=== PATIENT | female | born 1975 | race Caucasian/White ===

== ENCOUNTER 2016-11-16 17:45 | Inpatient (IN) | payer MEDICAID ==
[~2016-11-16] VITALS: Ht 157.5 cm; Wt 56.7 kg
[~2016-11-16 17:45] MED LIST: LEVO100T41 PO
[2016-11-16 19:43] LABS: BASOPHILS % 0.7 % (0.0-2.0); DIFFERENTIAL COMMENT 0; EOSINOPHILS % 3.4 % (0.0-5.0); HEMATOCRIT. 36.2 % (36.0-48.0); LYMPHOCYTES % 25.5 % (20.0-50.0); MEAN CORPUSCULAR HEMOGLOBIN 26.3 pg (28.0-32.0); MEAN CORPUSCULAR HGB CONC 33.3 g/dL (31.0-37.0); MEAN CORPUSCULAR VOLUME 78.9 fL (81.0-99.0); MEAN PLATELET VOLUME 10.2 fl (7.4-10.4); NEUTROPHILS % 62.4 % (40.0-76.0); PLATELET 130 x1000/uL (130-400); RED BLOOD CELL COUNT 4.59 mill/uL (4.2-5.4); RED CELL DISTRIBUTION WIDTH 15.7 % (11.6-14.6); WHITE BLOOD COUNT 5.1 x1000/uL (4.5-11.0)
[2016-11-16 19:50] LABS: PROTHROMBIN TIME 10.2 sec
[2016-11-16 20:02] LABS: ALANINE AMINOTRANSFERASE 17 IU/L (13-61); ALBUMIN 3.5 g/dL (3.4-5.0); ANION GAP 7; CALCIUM 8.8 mg/dL (8.5-10.1); CARBON DIOXIDE 33 mEq/L (21-32); CHLORIDE 104 mEq/L (98-107); INDEX HEMOLYSI 1 (1-3); INDEX ICTERIC 1 (1-4); INDEX LIPEMIC 1 (1-3); UREA NITROGEN BLOOD 17 mg/dL (7-21); eGFR > 60 mL/min (>60)
[2016-11-16 23:15] VITALS: BP 110/74
[2016-11-17] MEDS: SODIUM CHLORIDE 0.9% 1,000 ML IV SCH ×2 (02:49→14:41)
[2016-11-17 04:00] VITALS: BP 108/69
[2016-11-17 06:35] LABS: DIFFERENTIAL COMMENT 0; EOSINOPHILS % 4.1 % (0.0-5.0); HEMOGLOBIN. 11.8 g/dL (12.0-16.0); LYMPHOCYTES % 32.2 % (20.0-50.0); MEAN CORPUSCULAR HEMOGLOBIN 26.3 pg (28.0-32.0); MEAN CORPUSCULAR HGB CONC 33.6 g/dL (31.0-37.0); MEAN CORPUSCULAR VOLUME 78.2 fL (81.0-99.0); MEAN PLATELET VOLUME 10.7 fl (7.4-10.4); NEUTROPHILS % 52.7 % (40.0-76.0); PLATELET 125 x1000/uL (130-400); RED BLOOD CELL COUNT 4.48 mill/uL (4.2-5.4); RED CELL DISTRIBUTION WIDTH 15.2 % (11.6-14.6); WHITE BLOOD COUNT 4.5 x1000/uL (4.5-11.0)
[2016-11-17] MEDS: LEVOTHYROXINE SODIUM 100MCG TABLET PO SCH (06:36)
[2016-11-17] MEDS ORDERED: ACET-2178 PO (06:37)
[2016-11-17] MEDS ORDERED: ACETAMINOPHEN 325MG TABLET PO PRN (06:45)
[2016-11-17 08:00] VITALS: BP 93/65
[2016-11-17 09:30] LABS: ANION GAP 8; CALCIUM 8.4 mg/dL (8.5-10.1); CARBON DIOXIDE 30 mEq/L (21-32); CHLORIDE 106 mEq/L (98-107); INDEX HEMOLYSI 1 (1-3); INDEX ICTERIC 1 (1-4); INDEX LIPEMIC 1 (1-3); UREA NITROGEN BLOOD 15 mg/dL (7-21); eGFR > 60 mL/min (>60)
[2016-11-17 12:00] VITALS: BP 86/60
[2016-11-17 16:00] VITALS: BP 103/79
[2016-11-17] MEDS: ENOXAPARIN 40MG/0.4ML SYR SUBCUT SCH (17:49)
[2016-11-17 20:00] VITALS: BP 100/69
[2016-11-18] VITALS (7 sets, daily range): BP systolic 80–129; BP diastolic 55–88
[2016-11-18] MEDS: SODIUM CHLORIDE 0.9% 1,000 ML IV SCH ×2 (03:00→16:07)
[2016-11-18] MEDS: LEVOTHYROXINE SODIUM 100MCG TABLET PO SCH (06:58)
[2016-11-18] MEDS: ENOXAPARIN 40MG/0.4ML SYR SUBCUT SCH (10:03)
== END 2016-11-18 21:34 | DRG 252 ==
LOC: ER 17:46 → OBSVTOIN 20:01 → 6EST 20:01 → INTOOBSV 20:01
PROVIDERS: ADMIT Internal Medicine; ATTEND Internal Medicine
PROC: 0D20XUZ Change Feeding Device in Upper Intestinal Tract, External Approach (ICD-10-PCS; principal; 2016-11-18)
DX: K94.23 Gastrostomy malfunction (principal); R13.10 Dysphagia, unspecified; E03.9 Hypothyroidism, unspecified; Z88.1 Allergy status to other antibiotic agents; Z79.899 Other long term (current) drug therapy; Z86.61 Personal history of infections of the central nervous system; Y83.3 Surgical operation with formation of external stoma as the cause of abnormal reaction of the patient, or of later complication, without mention of misadventure at the time of the procedure; Z87.820 Personal history of traumatic brain injury
CPT/HCPCS: 36415; 74000; 80048; 80053; 85025; 85610; 99285; J1650; J7030

== ENCOUNTER 2018-10-06 00:34 | Emergency (ER) | payer MEDICAID ==
[~2018-10-06] VITALS: Ht 154.9 cm; Wt 46.0 kg
[~2018-10-06 00:34] MED LIST changes: +ACET-2178 PO; -LEVO100T41 PO; +[UNRECOGNIZED DRUG - CODE] PO
[2018-10-06] MEDS ORDERED: DIATR MEGLU/DIATRIZOATE SOLN 30ML ONE (01:22)
[2018-10-06 03:15] VITALS: BP 108/74
== END 2018-10-06 03:18 ==
LOC: ER 00:34
DX: K94.23 Gastrostomy malfunction (principal); E03.9 Hypothyroidism, unspecified; R47.01 Aphasia; Z86.73 Personal history of transient ischemic attack (TIA), and cerebral infarction without residual deficits; Z88.1 Allergy status to other antibiotic agents; Z98.890 Other specified postprocedural states
CPT/HCPCS: 43762; 74018; 99284; Q9963; Z7610; 43760

== ENCOUNTER 2018-10-10 19:03 | Inpatient (IN) | payer MEDICAID, OTHER ==
[~2018-10-10] VITALS: Ht 157.5 cm; Wt 55.8 kg
[2018-10-10] MEDS ORDERED: SODIUM CHLORIDE 0.9% 1,000 ML IV ONE (20:20)
[2018-10-10] MEDS ORDERED: GUAIFENESIN 200MG/10ML SUGAR FREE UDC PO PRN (20:45)
[2018-10-10] MEDS ORDERED: ONDANSETRON HCL 4MG/2ML INJ IV PRN (20:45)
[2018-10-10] MEDS ORDERED: DOCUSATE SODIUM 100MG CAPSULE PO PRN (20:45)
[2018-10-10] MEDS ORDERED: ACETAMINOPHEN 325MG TABLET PO PRN (20:45)
[2018-10-10] MEDS ORDERED: NA PHOS,M-B/NA PHOS,DI-BA ENEMA 118ML PR PRN (20:45)
[2018-10-10] MEDS ORDERED: DIPHENHYDRAMINE 50MG/ML VIAL IV PRN (20:45)
[2018-10-10] MEDS ORDERED: IPRATROPIUM/ALBUTEROL 0.5-3(2.5)MG/3ML NEB INH PRN (20:45)
[2018-10-10] MEDS ORDERED: ACETAMINOPHEN 650MG/20.3ML UDC GT PRN (20:45)
[2018-10-10] MEDS ORDERED: ACETAMINOPHEN 650MG SUPP PR PRN (20:45)
[2018-10-10] MEDS ORDERED: CLONIDINE 0.1MG TABLET PO PRN (20:45)
[2018-10-10] MEDS ORDERED: MAGNESIUM/ALUMINUM HYDROXIDE/SIMETHICONE 30ML UDC PO PRN (20:45)
[2018-10-10 21:00] LABS: BASOPHILS % 0.9 % (0.0-2.0); EOSINOPHILS % 3.9 % (0.0-5.0); HEMATOCRIT. 40.8 % (36.0-48.0); HEMOGLOBIN. 13.8 g/dL (12.0-16.0); LYMPHOCYTES % 28.1 % (20.0-50.0); MEAN CORPUSCULAR HEMOGLOBIN 28.4 pg (28.0-32.0); MEAN PLATELET VOLUME 9.7 fl (7.4-10.4); MONOCYTES % 8.8 % (2.0-8.0); NEUTROPHILS % 58.3 % (40.0-76.0); PLATELET 170 x1000/uL (130-400); RED BLOOD CELL COUNT 4.86 mill/uL (4.2-5.4); RED CELL DISTRIBUTION WIDTH 15.1 % (11.6-14.6)
[2018-10-10 21:04] LABS: CHLORIDE 110 mEq/L (98-107)
[2018-10-10 21:06] LABS: PROTHROMBIN TIME 9.8 sec (9.1-11.1)
[2018-10-10] MEDS ORDERED: SODIUM CHLORIDE 0.9% 1,000 ML IV SCH (23:45)
[2018-10-11] VITALS: BP 108/73
[2018-10-11] MEDS ORDERED: MOM PO (01:36)
[2018-10-11 04:00] VITALS: BP 103/65
[2018-10-11] MEDS: SODIUM CHLORIDE 0.9% INJ 3ML FLUSH IVF SCH ×3 (06:16→22:00)
[2018-10-11 06:52] LABS: BASOPHILS % 0.9 % (0.0-2.0); EOSINOPHILS % 3.7 % (0.0-5.0); HEMATOCRIT. 37.6 % (36.0-48.0); HEMOGLOBIN. 12.7 g/dL (12.0-16.0); LYMPHOCYTES % 19.4 % (20.0-50.0); MEAN CORPUSCULAR HEMOGLOBIN 28.5 pg (28.0-32.0); MEAN CORPUSCULAR VOLUME 84.5 fL (81.0-99.0); MEAN PLATELET VOLUME 10.2 fl (7.4-10.4); MONOCYTES % 7.2 % (2.0-8.0); NEUTROPHILS % 68.8 % (40.0-76.0); PLATELET 156 x1000/uL (130-400); RED BLOOD CELL COUNT 4.45 mill/uL (4.2-5.4); RED CELL DISTRIBUTION WIDTH 14.9 % (11.6-14.6)
[2018-10-11 07:05] LABS: CHLORIDE 113 mEq/L (98-107)
[2018-10-11 07:19] LABS: LDL CHOLESTEROL 95 mg/dL (5-100)
[2018-10-11 07:20] LABS: HDL CHOLESTEROL 53 mg/dL (40-59)
[2018-10-11 08:00] VITALS: BP 89/56
[2018-10-11] MEDS: ENOXAPARIN 40MG/0.4ML SYR SUBCUT SCH (08:54)
[2018-10-11 12:00] VITALS: BP 100/63
[2018-10-11 16:00] VITALS: BP 90/59
[2018-10-11] MEDS: DEXT 5%/0.9% NACL 1,000 ML IV SCH (17:42)
[2018-10-11] MEDS ORDERED: CEFAZOLIN 1000MG PREMIX 50 ML IV NR (18:30)
[2018-10-11 20:00] VITALS: BP 121/59
[2018-10-11] MEDS: PANTOPRAZOLE SODIUM 40 MG/VIAL IV SCH (20:12)
[2018-10-12 04:00] VITALS: BP 95/60
[2018-10-12] MEDS: SODIUM CHLORIDE 0.9% INJ 3ML FLUSH IVF SCH (05:01)
[2018-10-12 08:00] VITALS: BP 97/66
[2018-10-12] MEDS: ENOXAPARIN 40MG/0.4ML SYR SUBCUT SCH (09:00)
[2018-10-12] MEDS: DEXT 5%/0.9% NACL 1,000 ML IV SCH ×2 (09:50→23:47)
[2018-10-12] MEDS: PANTOPRAZOLE SODIUM 40 MG/VIAL IV SCH ×2 (09:50→22:20)
[2018-10-12 12:00] VITALS: BP 91/70
[2018-10-13 08:00] VITALS: BP 87/59
[2018-10-13] MEDS: ENOXAPARIN 40MG/0.4ML SYR SUBCUT SCH ×2 (09:00→09:38)
[2018-10-13] MEDS: PANTOPRAZOLE SODIUM 40 MG/VIAL IV SCH ×2 (09:37→21:09)
[2018-10-13 12:00] VITALS: BP 78/59
[2018-10-13] MEDS ORDERED: DIATR MEGLU/DIATRIZOATE SOLN 30ML ONE (15:19)
[2018-10-13 16:00] VITALS: BP 96/59
[2018-10-13 20:00] VITALS: BP 98/70
[2018-10-13] MEDS: DEXT 5%/0.9% NACL 1,000 ML IV SCH (21:09)
[2018-10-14] VITALS: BP 99/71
[2018-10-14 04:00] VITALS: BP 100/55
[2018-10-14 08:00] VITALS: BP_SYST 100; BP_SYST 138; BP_DIAS 42; BP_DIAS 77
[2018-10-14] MEDS: DEXT 5%/0.9% NACL 1,000 ML IV SCH ×2 (08:52→21:30)
[2018-10-14] MEDS: ENOXAPARIN 40MG/0.4ML SYR SUBCUT SCH (08:52)
[2018-10-14] MEDS: PANTOPRAZOLE SODIUM 40 MG/VIAL IV SCH ×2 (08:52→21:30)
[2018-10-14 12:00] VITALS: BP 138/42
[2018-10-14 16:00] VITALS: BP 111/69
[2018-10-14 17:45] LABS: BASOPHILS % 0.8 % (0.0-2.0); EOSINOPHILS % 2.1 % (0.0-5.0); HEMATOCRIT. 35.2 % (36.0-48.0); MEAN CORPUSCULAR HEMOGLOBIN 28.3 pg (28.0-32.0); MEAN PLATELET VOLUME 9.3 fl (7.4-10.4); MONOCYTES % 11.9 % (2.0-8.0); NEUTROPHILS % 50.2 % (40.0-76.0); PLATELET 134 x1000/uL (130-400); RED BLOOD CELL COUNT 4.24 mill/uL (4.2-5.4); RED CELL DISTRIBUTION WIDTH 14.8 % (11.6-14.6)
[2018-10-14 17:57] LABS: CHLORIDE 114 mEq/L (98-107)
[2018-10-14 18:04] LABS: HCG SCREEN NEGATIVE
[2018-10-14 20:00] VITALS: BP 109/50
[2018-10-15] VITALS: BP 100/60
[2018-10-15 04:00] VITALS: BP 93/56
[2018-10-15 08:00] VITALS: BP 94/44
[2018-10-15] MEDS: ENOXAPARIN 40MG/0.4ML SYR SUBCUT SCH (08:07)
[2018-10-15] MEDS: PANTOPRAZOLE SODIUM 40 MG/VIAL IV SCH (08:32)
[2018-10-15] MEDS ORDERED: MIDAZOLAM HCL 2 MG/2 ML VIAL IV PRN (12:26)
[2018-10-15] MEDS ORDERED: FENTANYL CITRATE/PF 50MCG/ML 2ML VIAL IV PRN (12:27)
[2018-10-15] MEDS ORDERED: MIDAZOLAM HCL 5 MG/5 ML VIAL ONE (12:31)
[2018-10-15] MEDS ORDERED: FENTANYL CITRATE/PF 50MCG/ML 2ML VIAL ONE (12:31)
[2018-10-15] MEDS ORDERED: DIATR MEGLU/DIATRIZOATE SOLN 30ML ONE (13:50)
[2018-10-15] MEDS ORDERED: SODIUM CHLORIDE 0.9% 10ML VIAL ONE (15:20)
[2018-10-15] MEDS ORDERED: SIMETHICONE 40 MG/0.6 ML 30ML ONE (15:20)
[2018-10-15 15:28] VITALS: BP 99/59
[2018-10-15 15:57] VITALS: BP 99/59
[2018-10-15] MEDS ORDERED: METOCLOPRAMIDE HCL 10MG/2ML VIAL IV SCH (16:00)
== END 2018-10-15 17:10 | DRG 813 ==
LOC: ER 19:03 → 6EST 22:13 → EDBEDREQ 22:15 → EDBEDREQTM 22:15 → ENRESERV 22:46
PROVIDERS: ADMIT Family Medicine; ATTEND Family Medicine
PROC: 0D20XUZ Change Feeding Device in Upper Intestinal Tract, External Approach (ICD-10-PCS; principal; 2018-10-15)
DX: T85.528A Displacement of other gastrointestinal prosthetic devices, implants and grafts, initial encounter (principal); R53.2 Functional quadriplegia; F03.90 Unspecified dementia, unspecified severity, without behavioral disturbance, psychotic disturbance, mood disturbance, and anxiety; R13.10 Dysphagia, unspecified; R47.1 Dysarthria and anarthria; E03.9 Hypothyroidism, unspecified; I69.320 Aphasia following cerebral infarction; Z88.8 Allergy status to other drugs, medicaments and biological substances; Y83.3 Surgical operation with formation of external stoma as the cause of abnormal reaction of the patient, or of later complication, without mention of misadventure at the time of the procedure; Y92.89 Other specified places as the place of occurrence of the external cause; Z79.899 Other long term (current) drug therapy
CPT/HCPCS: 36415; 74018; 80061; 84703; 92610; 96360; 99285; A6261; C1893; C9113; J0690; J1200; J1650; J2250; J2765; J3010; J7042; Q9963

== ENCOUNTER 2018-12-08 18:09 | Emergency (ER) | payer MEDICAID ==
[~2018-12-08] VITALS: Ht 152.4 cm; Wt 50.0 kg
[~2018-12-08 18:09] MED LIST changes: +MOM PO
[2018-12-09 01:34] VITALS: BP 102/66
== END 2018-12-09 01:37 ==
LOC: ER 18:09
DX: Z43.1 Encounter for attention to gastrostomy (principal); R13.0 Aphagia; I10 Essential (primary) hypertension
CPT/HCPCS: 74018; 81025; 99283

== ENCOUNTER 2018-12-17 17:19 | Inpatient (IN) | payer MEDICAID ==
[~2018-12-17] VITALS: Ht 160 cm; Wt 54.9 kg
[2018-12-17] MEDS ORDERED: SODIUM CHLORIDE 0.9% 1,000 ML IV ONE (20:45)
[2018-12-17] MEDS ORDERED: ACETAMINOPHEN 325MG TABLET PO PRN (22:15)
[2018-12-17] MEDS ORDERED: IPRATROPIUM/ALBUTEROL 0.5-3(2.5)MG/3ML NEB INH PRN (22:15)
[2018-12-17] MEDS ORDERED: ONDANSETRON HCL 4MG/2ML INJ IV PRN (22:15)
[2018-12-17] MEDS ORDERED: NA PHOS,M-B/NA PHOS,DI-BA ENEMA 118ML PR PRN (22:15)
[2018-12-17] MEDS ORDERED: MAGNESIUM/ALUMINUM HYDROXIDE/SIMETHICONE 30ML UDC PO PRN (22:15)
[2018-12-17] MEDS ORDERED: CLONIDINE 0.1MG TABLET PO PRN (22:15)
[2018-12-17] MEDS ORDERED: ENOXAPARIN 40MG/0.4ML SYR SUBCUT SCH (22:15)
[2018-12-17] MEDS ORDERED: DIPHENHYDRAMINE 50MG/ML VIAL IV PRN (22:15)
[2018-12-17] MEDS ORDERED: GUAIFENESIN 200MG/10ML SUGAR FREE UDC PO PRN (22:15)
[2018-12-17] MEDS ORDERED: DOCUSATE SODIUM 100MG CAPSULE PO PRN (22:15)
[2018-12-17] MEDS ORDERED: HYDROCODONE/ACETAMINOPHEN 5/325MG TABLET PO PRN (22:15)
[2018-12-17] MEDS ORDERED: MORPHINE SULFATE 4 MG/ML CPJ (NOT FOR IM USE) IV PRN (22:15)
[2018-12-17] MEDS: DEXT 5%/0.45% NACL 1000ML 1,000 ML IV SCH (22:15)
[2018-12-17] MEDS ORDERED: LORAZEPAM 2MG/ML CPJ IV PRN (22:15)
[2018-12-18 00:19] LABS: BASOPHILS % 0.9 % (0.0-2.0); EOSINOPHILS % 3.3 % (0.0-5.0); HEMATOCRIT. 39.2 % (36.0-48.0); HEMOGLOBIN. 13.2 g/dL (12.0-16.0); LYMPHOCYTES % 33.1 % (20.0-50.0); MEAN CORPUSCULAR HEMOGLOBIN 28.5 pg (28.0-32.0); MEAN CORPUSCULAR VOLUME 84.4 fL (81.0-99.0); MONOCYTES % 7.3 % (2.0-8.0); NEUTROPHILS % 55.4 % (40.0-76.0); PLATELET 188 x1000/uL (130-400); RED BLOOD CELL COUNT 4.65 mill/uL (4.2-5.4); RED CELL DISTRIBUTION WIDTH 13.7 % (11.6-14.6)
[2018-12-18 00:27] LABS: CHLORIDE 108 mEq/L (98-107)
[2018-12-18 05:40] LABS: CHLORIDE 111 mEq/L (98-107)
[2018-12-18 05:46] LABS: EOSINOPHILS % 4.3 % (0.0-5.0); HEMATOCRIT. 37.5 % (36.0-48.0); HEMOGLOBIN. 12.4 g/dL (12.0-16.0); LYMPHOCYTES % 26.3 % (20.0-50.0); MEAN CORPUSCULAR VOLUME 84.3 fL (81.0-99.0); MEAN PLATELET VOLUME 10.6 fl (7.4-10.4); NEUTROPHILS % 59.4 % (40.0-76.0); PLATELET 169 x1000/uL (130-400); RED BLOOD CELL COUNT 4.45 mill/uL (4.2-5.4)
[2018-12-18 05:47] LABS: LDL CHOLESTEROL 77 mg/dL (5-100)
[2018-12-18 05:49] LABS: HDL CHOLESTEROL 50 mg/dL (40-59)
[2018-12-18] MEDS: ENOXAPARIN 40MG/0.4ML SYR SUBCUT SCH (09:07)
[2018-12-18] MEDS: DEXT 5%/0.45% NACL 1000ML 1,000 ML IV SCH (15:22)
[2018-12-19 03:25] VITALS: BP 101/69
[2018-12-19 04:00] VITALS: BP 116/71
[2018-12-19 08:00] VITALS: BP 95/67
[2018-12-19] MEDS: ENOXAPARIN 40MG/0.4ML SYR SUBCUT SCH (10:22)
[2018-12-19] MEDS: DEXT 5%/0.45% NACL 1000ML 1,000 ML IV SCH (10:22)
[2018-12-19 11:52] VITALS: BP 134/103
[2018-12-19 16:19] VITALS: BP 116/89
[2018-12-19 16:39] VITALS: BP 116/59
== END 2018-12-19 17:20 | DRG 813 ==
LOC: ER 17:19 → EDBEDREQ 21:05 → EDBEDREQTM 21:05 → 6EST 12-18 21:04 → ENRESERV 12-19 01:49
PROVIDERS: ADMIT Internal Medicine; ATTEND Internal Medicine
PROC: 0D20XUZ Change Feeding Device in Upper Intestinal Tract, External Approach (ICD-10-PCS; principal; 2018-12-18)
DX: T85.528A Displacement of other gastrointestinal prosthetic devices, implants and grafts, initial encounter (principal); E83.51 Hypocalcemia; E87.8 Other disorders of electrolyte and fluid balance, not elsewhere classified; E86.0 Dehydration; Y83.8 Other surgical procedures as the cause of abnormal reaction of the patient, or of later complication, without mention of misadventure at the time of the procedure; Y92.89 Other specified places as the place of occurrence of the external cause
CPT/HCPCS: 36415; 51702; 80048; 80061; 96360; 96361; 96372; 99284; 99285; J1650; J7030

== ENCOUNTER 2019-01-09 17:23 | Inpatient (IN) | payer OTHER, MEDICAID ==
[~2019-01-09] VITALS: Ht 315 cm; Wt 54.9 kg
[2019-01-09] MEDS ORDERED: DIATR MEGLU/DIATRIZOATE SOLN 30ML GT ONE (20:15)
[2019-01-09] MEDS ORDERED: DIATR MEGLU/DIATRIZOATE SOLN 30ML ONE ×2 (20:20→20:59)
[2019-01-09 20:36] LABS: BASOPHILS % 0.8 % (0.0-2.0); EOSINOPHILS % 3.9 % (0.0-5.0); HEMATOCRIT. 39.5 % (36.0-48.0); HEMOGLOBIN. 13.5 g/dL (12.0-16.0); LYMPHOCYTES % 30.1 % (20.0-50.0); MEAN CORPUSCULAR HEMOGLOBIN 28.1 pg (28.0-32.0); MEAN PLATELET VOLUME 9.4 fl (7.4-10.4); MONOCYTES % 8.8 % (2.0-8.0); NEUTROPHILS % 56.4 % (40.0-76.0); PLATELET 185 x1000/uL (130-400); RED BLOOD CELL COUNT 4.81 mill/uL (4.2-5.4); RED CELL DISTRIBUTION WIDTH 14.4 % (11.6-14.6)
[2019-01-09 20:40] LABS: CHLORIDE 108 mEq/L (98-107)
[2019-01-09 22:00] VITALS: BP 108/82
[2019-01-09] MEDS ORDERED: MAGNESIUM/ALUMINUM HYDROXIDE/SIMETHICONE 30ML UDC PO PRN (22:30)
[2019-01-09] MEDS ORDERED: DOCUSATE SODIUM 100MG CAPSULE PO PRN (22:30)
[2019-01-09] MEDS ORDERED: ACETAMINOPHEN 325MG TABLET PO PRN (22:30)
[2019-01-09] MEDS ORDERED: GUAIFENESIN 200MG/10ML SUGAR FREE UDC PO PRN (22:30)
[2019-01-09] MEDS ORDERED: ONDANSETRON HCL 4MG/2ML INJ IV PRN ×2 (22:30)
[2019-01-09] MEDS ORDERED: NA PHOS,M-B/NA PHOS,DI-BA ENEMA 118ML PR PRN (22:30)
[2019-01-09] MEDS ORDERED: ACETAMINOPHEN 650MG/20.3ML UDC GT PRN (22:30)
[2019-01-09] MEDS ORDERED: ENALAPRIL 2.5MG/2ML VIAL 2ML IV PRN (22:30)
[2019-01-09] MEDS ORDERED: ACETAMINOPHEN 650MG SUPP PR PRN (22:30)
[2019-01-09] MEDS ORDERED: DIPHENHYDRAMINE 50MG/ML VIAL IV PRN (22:30)
[2019-01-09] MEDS ORDERED: CLONIDINE 0.1MG TABLET PO PRN (22:30)
[2019-01-09] MEDS ORDERED: IPRATROPIUM/ALBUTEROL 0.5-3(2.5)MG/3ML NEB INH PRN (22:30)
[2019-01-09] MEDS ORDERED: LORAZEPAM 2MG/ML CPJ IV PRN (22:30)
[2019-01-09] MEDS ORDERED: ENALAPRIL 1.25 MG in DEXTROSE 5% WATER 50 ML IV PRN (23:00)
[2019-01-10] VITALS: BP 104/74
[2019-01-10] MEDS: DEXT 5%/0.45% NACL 1000ML 1,000 ML IV SCH ×2 (00:30→10:48)
[2019-01-10] MEDS ORDERED: MEDR150D9 IM (02:47)
[2019-01-10 04:00] VITALS: BP 99/67
[2019-01-10] MEDS: SODIUM CHLORIDE 0.9% INJ 3ML FLUSH IVF SCH ×3 (05:04→21:06)
[2019-01-10 07:25] LABS: CHLORIDE 109 mEq/L (98-107)
[2019-01-10 07:30] LABS: BASOPHILS % 0.7 % (0.0-2.0); EOSINOPHILS % 5.5 % (0.0-5.0); HEMATOCRIT. 38.1 % (36.0-48.0); LYMPHOCYTES % 30.6 % (20.0-50.0); MEAN CORPUSCULAR HEMOGLOBIN 28.3 pg (28.0-32.0); MEAN CORPUSCULAR VOLUME 82.8 fL (81.0-99.0); MEAN PLATELET VOLUME 9.8 fl (7.4-10.4); MONOCYTES % 10.1 % (2.0-8.0); NEUTROPHILS % 53.1 % (40.0-76.0); PLATELET 170 x1000/uL (130-400)
[2019-01-10 07:35] LABS: LDL CHOLESTEROL 95 mg/dL (5-100)
[2019-01-10 07:39] LABS: HDL CHOLESTEROL 54 mg/dL (40-59)
[2019-01-10 08:00] VITALS: BP 104/65
[2019-01-10] MEDS: ENOXAPARIN 40MG/0.4ML SYR SUBCUT SCH (09:10)
[2019-01-10 12:00] VITALS: BP 106/67
[2019-01-10 16:00] VITALS: BP 103/63
[2019-01-10 20:00] VITALS: BP 103/66
[2019-01-11] VITALS: BP 104/70
[2019-01-11] MEDS: DEXT 5%/0.45% NACL 1000ML 1,000 ML IV SCH ×2 (00:45→15:52)
[2019-01-11 04:00] VITALS: BP 131/99
[2019-01-11] MEDS: SODIUM CHLORIDE 0.9% INJ 3ML FLUSH IVF SCH (05:46)
[2019-01-11 08:00] VITALS: BP 106/66
[2019-01-11] MEDS: ENOXAPARIN 40MG/0.4ML SYR SUBCUT SCH (09:14)
[2019-01-11 12:00] VITALS: BP 95/56
[2019-01-11 16:00] VITALS: BP 108/64
[2019-01-11 17:30] VITALS: BP 108/64
== END 2019-01-11 20:30 | DRG 813 ==
LOC: ER 17:36 → 6EST 20:52 → ENRESERV 21:07
PROVIDERS: ADMIT Family Medicine; ATTEND Family Medicine
DX: T85.528A Displacement of other gastrointestinal prosthetic devices, implants and grafts, initial encounter (principal); G04.90 Encephalitis and encephalomyelitis, unspecified; R13.10 Dysphagia, unspecified; Y83.8 Other surgical procedures as the cause of abnormal reaction of the patient, or of later complication, without mention of misadventure at the time of the procedure; E03.9 Hypothyroidism, unspecified; R47.1 Dysarthria and anarthria; K21.9 Gastro-esophageal reflux disease without esophagitis; Z86.73 Personal history of transient ischemic attack (TIA), and cerebral infarction without residual deficits; Z74.01 Bed confinement status; Z88.8 Allergy status to other drugs, medicaments and biological substances; Z79.1 Long term (current) use of non-steroidal anti-inflammatories (NSAID); Z79.899 Other long term (current) drug therapy; Y92.89 Other specified places as the place of occurrence of the external cause
CPT/HCPCS: 36415; 74018; 80048; 80061; 99285; J1650; Q9963

== ENCOUNTER 2019-02-03 23:40 | Emergency (ER) | payer MEDICAID, OTHER ==
[~2019-02-03] VITALS: Ht 157.5 cm; Wt 52.0 kg
[~2019-02-03 23:40] MED LIST changes: +MEDR150D9 IM
[2019-02-04] MEDS ORDERED: BACITRACIN ZINC OINT UDPKT TOP ONE (00:30)
[2019-02-04] MEDS ORDERED: LIDOCAINE HCL/PF 1% 10 MG/ML 5ML VIAL IJ ONE (00:30)
[2019-02-04] MEDS ORDERED: DIATR MEGLU/DIATRIZOATE SOLN 30ML ONE (02:37)
[2019-02-04 04:52] VITALS: BP 105/59
== END 2019-02-04 04:58 | disposition home or self-care (01) ==
LOC: ER 23:40
DX: K94.23 Gastrostomy malfunction (principal); Y82.8 Other medical devices associated with adverse incidents; Y92.128 Other place in nursing home as the place of occurrence of the external cause
CPT/HCPCS: 43762; 74018; 99284; J3490; Q9963; Z7610; 99283

== ENCOUNTER 2019-05-25 19:55 | Emergency (ER) | payer MEDICAID ==
[~2019-05-25] VITALS: Ht 157.5 cm; Wt 53.0 kg
[~2019-05-25 19:55] MED LIST changes: -ACET-2178 PO; +TOPUD PO
[2019-05-26 01:46] VITALS: BP 118/74
== END 2019-05-26 01:47 | disposition home or self-care (01) ==
LOC: ER 19:55
DX: K94.23 Gastrostomy malfunction (principal); K21.9 Gastro-esophageal reflux disease without esophagitis; E03.9 Hypothyroidism, unspecified; Z88.8 Allergy status to other drugs, medicaments and biological substances; Z79.899 Other long term (current) drug therapy; Z86.73 Personal history of transient ischemic attack (TIA), and cerebral infarction without residual deficits
CPT/HCPCS: 43762; 99284; Z7610

== ENCOUNTER 2019-06-28 23:14 | Inpatient (IN) | payer MEDICAID ==
[~2019-06-28] VITALS: Ht 152.4 cm; Wt 44.9 kg
[2019-06-29 01:39] LABS: HEMATOCRIT. 41.4 % (36.0-48.0); MEAN CORPUSCULAR HEMOGLOBIN 27.7 pg (28.0-32.0); MEAN PLATELET VOLUME 9.5 fl (7.4-10.4); PLATELET 174 x1000/uL (130-400); RED BLOOD CELL COUNT 5.05 mill/uL (4.2-5.4); RED CELL DISTRIBUTION WIDTH 15.2 % (11.6-14.6)
[2019-06-29 01:45] LABS: CHLORIDE 107 mEq/L (98-107)
[2019-06-29 04:45] VITALS: BP 102/71
[2019-06-29] MEDS ORDERED: GUAIFENESIN 200MG/10ML SUGAR FREE UDC PO PRN (06:30)
[2019-06-29] MEDS ORDERED: DOCUSATE SODIUM 100MG CAPSULE PO PRN (06:30)
[2019-06-29] MEDS ORDERED: LORAZEPAM 2MG/ML CPJ IV PRN (06:30)
[2019-06-29] MEDS ORDERED: ACETAMINOPHEN 325MG TABLET PO PRN (06:30)
[2019-06-29] MEDS ORDERED: ONDANSETRON HCL 4MG/2ML INJ IV PRN (06:30)
[2019-06-29] MEDS ORDERED: MAGNESIUM/ALUMINUM HYDROXIDE/SIMETHICONE 30ML UDC PO PRN (06:30)
[2019-06-29] MEDS ORDERED: HYDROCODONE/ACETAMINOPHEN 10/325MG TABLET PO PRN (06:30)
[2019-06-29] MEDS ORDERED: DIPHENHYDRAMINE 50MG/ML VIAL IV PRN (06:30)
[2019-06-29] MEDS ORDERED: MORPHINE SULFATE 2 MG/ML CPJ (NOT FOR IM USE) IV PRN (06:30)
[2019-06-29] MEDS ORDERED: IPRATROPIUM/ALBUTEROL 0.5-3(2.5)MG/3ML NEB HHN PRN (06:30)
[2019-06-29] MEDS ORDERED: CLONIDINE 0.1MG TABLET PO PRN (06:30)
[2019-06-29 06:39] LABS: PLATELET ESTIMATE NORMAL
[2019-06-29] MEDS: ENOXAPARIN 40MG/0.4ML SYR SUBCUT SCH (09:11)
[2019-06-29] MEDS: DEXT 5%/0.45% NACL 1000ML 1,000 ML IV SCH ×2 (09:15→23:14)
[2019-06-29 20:00] VITALS: BP 110/73
[2019-06-29] MEDS: SODIUM CHLORIDE 0.9% INJ 3ML FLUSH IVF SCH (21:50)
[2019-06-30] VITALS: BP 106/64
[2019-06-30 04:00] VITALS: BP 96/66
[2019-06-30] MEDS: SODIUM CHLORIDE 0.9% INJ 3ML FLUSH IVF SCH ×2 (05:00→14:10)
[2019-06-30 06:41] LABS: EOSINOPHILS % 7.4 % (0.0-5.0); HEMATOCRIT. 38.4 % (36.0-48.0); HEMOGLOBIN. 13.2 g/dL (12.0-16.0); LYMPHOCYTES % 30.1 % (20.0-50.0); MEAN CORPUSCULAR VOLUME 81.4 fL (81.0-99.0); MONOCYTES % 11.3 % (2.0-8.0); NEUTROPHILS % 50.2 % (40.0-76.0); PLATELET 158 x1000/uL (130-400); RED BLOOD CELL COUNT 4.71 mill/uL (4.2-5.4)
[2019-06-30 06:43] LABS: CHLORIDE 110 mEq/L (98-107)
[2019-06-30] MEDS: ENOXAPARIN 40MG/0.4ML SYR SUBCUT SCH (08:42)
== END 2019-06-30 19:19 | DRG 252 ==
LOC: ER 23:57 → 6EST 06-29 01:51 → EDBEDREQTM 06-29 02:05 → EDBEDREQ 06-29 02:05 → ENRESERV 06-29 03:07
PROVIDERS: ADMIT Internal Medicine; ATTEND Internal Medicine
PROC: 0D20XUZ Change Feeding Device in Upper Intestinal Tract, External Approach (ICD-10-PCS; principal; 2019-06-29)
DX: K94.23 Gastrostomy malfunction (principal); R13.10 Dysphagia, unspecified; E03.9 Hypothyroidism, unspecified; Y83.8 Other surgical procedures as the cause of abnormal reaction of the patient, or of later complication, without mention of misadventure at the time of the procedure; Y73.8 Miscellaneous gastroenterology and urology devices associated with adverse incidents, not elsewhere classified; K21.9 Gastro-esophageal reflux disease without esophagitis; Z79.890 Hormone replacement therapy; I69.320 Aphasia following cerebral infarction; Z88.8 Allergy status to other drugs, medicaments and biological substances; Z79.899 Other long term (current) drug therapy
CPT/HCPCS: 36415; 99285; J1650

== ENCOUNTER 2019-08-25 23:29 | Inpatient (IN) | payer OTHER, MEDICAID ==
[~2019-08-25] VITALS: Ht 157.5 cm; Wt 49.9 kg
[2019-08-26 00:46] LABS: BASOPHILS % 0.8 % (0.0-2.0); EOSINOPHILS % 4.3 % (0.0-5.0); HEMATOCRIT. 45.2 % (36.0-48.0); HEMOGLOBIN. 15.4 g/dL (12.0-16.0); LYMPHOCYTES % 29.7 % (20.0-50.0); MEAN CORPUSCULAR VOLUME 82.5 fL (81.0-99.0); MONOCYTES % 9.2 % (2.0-8.0); PLATELET 180 x1000/uL (130-400); RED BLOOD CELL COUNT 5.48 mill/uL (4.2-5.4)
[2019-08-26 00:48] LABS: CHLORIDE 108 mEq/L (98-107)
[2019-08-26 00:52] LABS: PARTIAL THROMBOPLASTIN TIME 29.6 sec (23.4-31.0)
[2019-08-26 01:02] LABS: CLARITY URINE TURBID (CLEAR); COLOR URINE YELLOW (YELLOW); KETONES URINE NEGATIVE (NEGATIVE); LEUKOCYTE ESTERASE URINE 2+ (NEGATIVE); NITRITE URINE NEGATIVE (NEGATIVE); OCCULT BLOOD URINE NEGATIVE (NEGATIVE); PROTEIN URINE NEGATIVE (NEGATIVE); SPECIFIC GRAVITY URINE 1.023 (1.005-1.030)
[2019-08-26] MEDS ORDERED: CEFTRIAXONE 1 G PREMIX 50 ML IV ONE (01:15)
[2019-08-26 04:40] VITALS: BP 132/72
[2019-08-26] MEDS ORDERED: ONDANSETRON HCL 4MG/2ML INJ IV PRN (06:45)
[2019-08-26] MEDS ORDERED: CLONIDINE 0.1MG TABLET PO PRN (06:45)
[2019-08-26 08:27] LABS: PHOSPHORUS 3.5 mg/dL (2.5-4.9)
[2019-08-26] MEDS: ENOXAPARIN 40MG/0.4ML SYR SUBCUT SCH (10:42)
[2019-08-26] MEDS: SODIUM CHLORIDE 0.9% 1,000 ML IV SCH (10:43)
[2019-08-26 12:00] VITALS: BP 91/60
[2019-08-26 16:00] VITALS: BP 88/56
[2019-08-26 20:00] VITALS: BP 150/60
[2019-08-26 23:57] VITALS: BP 118/84
[2019-08-27] MEDS: CEFTRIAXONE 1 G PREMIX 50 ML IV SCH (05:30)
[2019-08-27] MEDS: SODIUM CHLORIDE 0.9% 1,000 ML IV SCH (05:35)
[2019-08-27 08:00] VITALS: BP 101/67
[2019-08-27 08:39] LABS: EOSINOPHILS % 6.8 % (0.0-5.0); HEMATOCRIT. 41.5 % (36.0-48.0); LYMPHOCYTES % 20.3 % (20.0-50.0); MEAN CORPUSCULAR HEMOGLOBIN 29.1 pg (28.0-32.0); MEAN CORPUSCULAR VOLUME 86.4 fL (81.0-99.0); MONOCYTES % 10.1 % (2.0-8.0); NEUTROPHILS % 61.8 % (40.0-76.0); RED BLOOD CELL COUNT 4.81 mill/uL (4.2-5.4); RED CELL DISTRIBUTION WIDTH 16.6 % (11.6-14.6)
[2019-08-27] MEDS: ENOXAPARIN 40MG/0.4ML SYR SUBCUT SCH (09:00)
[2019-08-27 09:08] LABS: MEAN PLATELET VOLUME 10.7 fl (7.4-10.4); PLATELET 140 x1000/uL (130-400)
[2019-08-27 12:00] VITALS: BP 109/72
[2019-08-27] MEDS ORDERED: MIDAZOLAM HCL 5 MG/5 ML VIAL ONE (14:56)
[2019-08-27] MEDS ORDERED: FENTANYL CITRATE/PF 50MCG/ML 2ML VIAL ONE (14:57)
[2019-08-27 18:15] VITALS: BP 100/53
[2019-08-27 18:52] LABS: CHLORIDE 116 mEq/L (98-107)
[2019-08-27 19:03] LABS: LDL CHOLESTEROL 101 mg/dL (5-100)
[2019-08-27 19:04] LABS: HDL CHOLESTEROL 50 mg/dL (40-59)
[2019-08-27 20:00] VITALS: BP 106/59
[2019-08-28] VITALS: BP_SYST 93; BP_SYST 98; BP_DIAS 48; BP_DIAS 59
[2019-08-28] MEDS: SODIUM CHLORIDE 0.9% 1,000 ML IV SCH (00:37)
[2019-08-28 04:00] VITALS: BP 96/45
[2019-08-28] MEDS: CEFTRIAXONE 1 G PREMIX 50 ML IV SCH (04:43)
[2019-08-28 07:16] LABS: HEMATOCRIT. 37.6 % (36.0-48.0); HEMOGLOBIN. 12.7 g/dL (12.0-16.0); LYMPHOCYTES % 14.4 % (20.0-50.0); MEAN CORPUSCULAR HEMOGLOBIN 28.3 pg (28.0-32.0); MEAN CORPUSCULAR VOLUME 83.7 fL (81.0-99.0); MEAN PLATELET VOLUME 10.1 fl (7.4-10.4); MONOCYTES % 13.3 % (2.0-8.0); NEUTROPHILS % 64.3 % (40.0-76.0); PLATELET 146 x1000/uL (130-400); RED BLOOD CELL COUNT 4.49 mill/uL (4.2-5.4); RED CELL DISTRIBUTION WIDTH 15.9 % (11.6-14.6)
[2019-08-28 07:54] LABS: CHLORIDE 114 mEq/L (98-107)
[2019-08-28] MEDS: ENOXAPARIN 40MG/0.4ML SYR SUBCUT SCH (09:10)
== END 2019-08-28 11:51 | DRG 252 ==
LOC: ER 23:29 → EDBEDREQ 08-26 01:09 → 6EST 08-26 01:44 → EDBEDREQ 08-26 01:46 → ENRESERV 08-26 03:16
PROVIDERS: ADMIT Internal Medicine; ATTEND Internal Medicine
PROC: 0DH63UZ Insertion of Feeding Device into Stomach, Percutaneous Approach (ICD-10-PCS; principal; 2019-08-27)
DX: K94.23 Gastrostomy malfunction (principal); E46 Unspecified protein-calorie malnutrition; I69.359 Hemiplegia and hemiparesis following cerebral infarction affecting unspecified side; R13.12 Dysphagia, oropharyngeal phase; D64.9 Anemia, unspecified; E03.9 Hypothyroidism, unspecified; K29.70 Gastritis, unspecified, without bleeding; I10 Essential (primary) hypertension; Y83.3 Surgical operation with formation of external stoma as the cause of abnormal reaction of the patient, or of later complication, without mention of misadventure at the time of the procedure; K21.9 Gastro-esophageal reflux disease without esophagitis; Z79.899 Other long term (current) drug therapy; Z88.8 Allergy status to other drugs, medicaments and biological substances; I69.320 Aphasia following cerebral infarction; Z87.820 Personal history of traumatic brain injury; Z79.890 Hormone replacement therapy; Y92.89 Other specified places as the place of occurrence of the external cause; I69.322 Dysarthria following cerebral infarction; Z68.20 Body mass index [BMI] 20.0-20.9, adult
CPT/HCPCS: 36415; 71045; 80048; 80061; 81003; 83735; 83880; 84100; 84443; 84484; 93005; 93970; 96374; 99285; C1893; J0696; J1650; J2250; J3010; J7030

== ENCOUNTER 2021-10-30 10:58 | Inpatient (IN) | payer MEDICAID ==
[~2021-10-30] VITALS: Ht 304.8 cm; Wt 54.9 kg
[2021-10-30 12:46] LABS: EOSINOPHILS % 3.2 % (0.0-5.0); HEMATOCRIT. 41.2 % (36.0-48.0); HEMOGLOBIN. 14.3 g/dL (12.0-16.0); LYMPHOCYTES % 27.1 % (20.0-50.0); MEAN CORPUSCULAR HEMOGLOBIN 26.4 pg (28.0-32.0); MEAN CORPUSCULAR VOLUME 76.1 fL (81.0-99.0); MEAN PLATELET VOLUME 9.7 fl (7.4-10.4); MONOCYTES % 7.7 % (2.0-8.0); PLATELET 213 x1000/uL (130-400); RED BLOOD CELL COUNT 5.41 mill/uL (4.2-5.4); RED CELL DISTRIBUTION WIDTH 15.8 % (11.6-14.6)
[2021-10-30 12:47] LABS: CHLORIDE 108 mEq/L (98-107)
[2021-10-30 12:51] LABS: PROTHROMBIN TIME 10.9 sec (9.6-11.0)
[2021-10-30] MEDS ORDERED: IOHEXOL-300 50 ML BOTTLE IV ONE (13:50)
[2021-10-30] MEDS ORDERED: LIDOCAINE HCL 1% 20ML VIAL (Pyxis) INJ ONE (13:50)
[2021-10-30] MEDS ORDERED: LIDOCAINE HCL 2% JELLY 5ML ONE (13:50)
[2021-10-30] MEDS ORDERED: SODIUM CHLORIDE 0.9% 1,000 ML IV ONE (17:45)
[2021-10-30] MEDS ORDERED: HYDRALAZINE 20MG/ML VIAL IV PRN (18:30)
[2021-10-30] MEDS ORDERED: FENTANYL CITRATE/PF 50MCG/ML 2ML VIAL IV PRN (18:30)
[2021-10-30] MEDS ORDERED: ONDANSETRON HCL 4MG/2ML INJ IV PRN (18:30)
[2021-10-30] MEDS ORDERED: ACETAMINOPHEN 650MG SUPP PR PRN (18:30)
[2021-10-30] MEDS ORDERED: LORAZEPAM 2MG/ML CPJ IV PRN (18:30)
[2021-10-30] MEDS ORDERED: NALOXONE HCL 0.4MG/ML VIAL IV PRN (18:45)
[2021-10-30] MEDS: DEXT 5%/0.9% NACL 1,000 ML IV SCH (19:02)
[2021-10-31] VITALS: BP 110/58
[2021-10-31 04:00] VITALS: BP 130/64
[2021-10-31 08:00] VITALS: BP 107/69
[2021-10-31 08:06] LABS: CHLORIDE 109 mEq/L (98-107)
[2021-10-31 08:14] LABS: LDL CHOLESTEROL 102 mg/dL (5-100)
[2021-10-31 08:16] LABS: HDL CHOLESTEROL 47 mg/dL (40-59)
[2021-10-31 08:18] LABS: BASOPHILS % 0.9 % (0.0-2.0); EOSINOPHILS % 1.4 % (0.0-5.0); HEMATOCRIT. 41.5 % (36.0-48.0); HEMOGLOBIN. 14.3 g/dL (12.0-16.0); LYMPHOCYTES % 20.5 % (20.0-50.0); MEAN CORPUSCULAR HEMOGLOBIN 26.2 pg (28.0-32.0); MEAN CORPUSCULAR VOLUME 76.1 fL (81.0-99.0); MEAN PLATELET VOLUME 10.5 fl (7.4-10.4); NEUTROPHILS % 69.2 % (40.0-76.0); PLATELET 219 x1000/uL (130-400); RED BLOOD CELL COUNT 5.46 mill/uL (4.2-5.4); RED CELL DISTRIBUTION WIDTH 16.1 % (11.6-14.6)
[2021-10-31] MEDS: DEXT 5%/0.9% NACL 1,000 ML IV SCH ×2 (09:16→21:46)
[2021-10-31 12:00] VITALS: BP 103/60
[2021-10-31] MEDS ORDERED: DIATR MEGLU/DIATRIZOATE SOLN 30ML ONE (14:32)
[2021-10-31 16:00] VITALS: BP 115/72
[2021-10-31 20:00] VITALS: BP 123/76
[2021-11-01] VITALS: BP 119/83
[2021-11-01 04:00] VITALS: BP 110/80
[2021-11-01 08:00] VITALS: BP 99/71
[2021-11-01] MEDS: DEXT 5%/0.9% NACL 1,000 ML IV SCH (10:09)
[2021-11-01 12:00] VITALS: BP 104/66
[2021-11-01 16:00] VITALS: BP 125/68
[2021-11-01] MEDS: DEXT 5%/LACTATED RINGERS 1,000 ML IV SCH ×2 (16:22→21:07)
[2021-11-01] MEDS ORDERED: ACETAMINOPHEN 325MG TABLET PO PRN (16:45)
[2021-11-01 20:00] VITALS: BP 113/67
[2021-11-02] VITALS: BP 99/57
[2021-11-02 02:42] LABS: CLARITY URINE TURBID (CLEAR); COLOR URINE DARK YELLOW (YELLOW); KETONES URINE TRACE (NEGATIVE); LEUKOCYTE ESTERASE URINE TRACE (NEGATIVE); NITRITE URINE POSITIVE (NEGATIVE); OCCULT BLOOD URINE 3+ (NEGATIVE); PROTEIN URINE 1+ (NEGATIVE); SPECIFIC GRAVITY URINE 1.029 (1.005-1.030)
[2021-11-02 04:00] VITALS: BP 101/61
[2021-11-02] MEDS: LEVOTHYROXINE SODIUM 100MCG TABLET PO SCH (05:53)
[2021-11-02 08:00] VITALS: BP 131/99
[2021-11-02] MEDS: DEXT 5%/LACTATED RINGERS 1,000 ML IV SCH ×2 (08:09→17:12)
[2021-11-02 12:00] VITALS: BP 92/45
[2021-11-02] MEDS ORDERED: CEFTRIAXONE 1 G PREMIX 50 ML IV SCH (13:30)
[2021-11-02] MEDS: CEFTRIAXONE 1,000 MG in DEXTROSE 5% WATER 50 ML IV SCH (15:31)
[2021-11-02 16:00] VITALS: BP_SYST 90; BP_SYST 92; BP_DIAS 43; BP_DIAS 46
[2021-11-02 20:00] VITALS: BP 92/58
[2021-11-03] VITALS: BP 98/60
[2021-11-03] MEDS: DEXT 5%/LACTATED RINGERS 1,000 ML IV SCH ×3 (02:51→23:28)
[2021-11-03 04:00] VITALS: BP 129/96
[2021-11-03] MEDS: LEVOTHYROXINE SODIUM 100MCG TABLET PO SCH (06:05)
[2021-11-03 07:49] LABS: BASOPHILS % 0.9 % (0.0-2.0); EOSINOPHILS % 4.7 % (0.0-5.0); HEMATOCRIT. 36.6 % (36.0-48.0); HEMOGLOBIN. 12.1 g/dL (12.0-16.0); LYMPHOCYTES % 40.4 % (20.0-50.0); MEAN CORPUSCULAR HEMOGLOBIN 26.1 pg (28.0-32.0); MEAN PLATELET VOLUME 10.5 fl (7.4-10.4); MONOCYTES % 8.8 % (2.0-8.0); NEUTROPHILS % 45.2 % (40.0-76.0); PLATELET 155 x1000/uL (130-400); RED BLOOD CELL COUNT 4.64 mill/uL (4.2-5.4); RED CELL DISTRIBUTION WIDTH 15.9 % (11.6-14.6)
[2021-11-03 08:00] VITALS: BP 95/55
[2021-11-03 08:07] LABS: CHLORIDE 112 mEq/L (98-107)
[2021-11-03 12:00] VITALS: BP 105/61
[2021-11-03] MEDS: CEFTRIAXONE 1,000 MG in DEXTROSE 5% WATER 50 ML IV SCH (14:13)
[2021-11-03 16:00] VITALS: BP 93/53
[2021-11-03 20:00] VITALS: BP 91/59
[2021-11-03] MEDS: SULFAMETHOXAZOLE/TRIMETHOPRIM 400/80MG TAB PO SCH (21:23)
[2021-11-04] VITALS: BP 98/59
[2021-11-04 04:00] VITALS: BP 116/91
[2021-11-04] MEDS: LEVOTHYROXINE SODIUM 100MCG TABLET PO SCH (06:56)
[2021-11-04 08:00] VITALS: BP 98/55
[2021-11-04] MEDS: SULFAMETHOXAZOLE/TRIMETHOPRIM 400/80MG TAB PO SCH ×2 (09:04→23:10)
[2021-11-04] MEDS: DEXT 5%/LACTATED RINGERS 1,000 ML IV SCH (09:04)
[2021-11-04 12:00] VITALS: BP 118/74
[2021-11-04 16:00] VITALS: BP 100/58
[2021-11-04 20:00] VITALS: BP 98/56
[2021-11-05] VITALS (7 sets, daily range): BP systolic 86–122; BP diastolic 40–85
[2021-11-05 06:44] LABS: BASOPHILS % 0.7 % (0.0-2.0); EOSINOPHILS % 6.2 % (0.0-5.0); HEMATOCRIT. 32.4 % (36.0-48.0); HEMOGLOBIN. 11.1 g/dL (12.0-16.0); LYMPHOCYTES % 33.6 % (20.0-50.0); MEAN CORPUSCULAR VOLUME 76.1 fL (81.0-99.0); MONOCYTES % 8.9 % (2.0-8.0); NEUTROPHILS % 50.6 % (40.0-76.0); RED BLOOD CELL COUNT 4.26 mill/uL (4.2-5.4); RED CELL DISTRIBUTION WIDTH 15.9 % (11.6-14.6)
[2021-11-05] MEDS: LEVOTHYROXINE SODIUM 100MCG TABLET PO SCH ×2 (06:58→08:23)
[2021-11-05 07:00] LABS: CHLORIDE 104 mEq/L (98-107)
[2021-11-05 07:09] LABS: MEAN PLATELET VOLUME 11.6 fl (7.4-10.4); PLATELET 142 x1000/uL (130-400)
[2021-11-05] MEDS: SULFAMETHOXAZOLE/TRIMETHOPRIM 400/80MG TAB PO SCH ×2 (08:23→21:00)
[2021-11-05] MEDS: DEXT 5%/LACTATED RINGERS 1,000 ML IV SCH (19:00)
[2021-11-06] VITALS: BP 114/87
[2021-11-06] MEDS: DEXT 5%/LACTATED RINGERS 1,000 ML IV SCH ×2 (01:45→11:53)
[2021-11-06 04:00] VITALS: BP 118/77
[2021-11-06] MEDS ORDERED: SULF-292 PO (06:39)
[2021-11-06] MEDS ORDERED: LACTATED RINGERS 1,000 ML IV SCH (07:00)
[2021-11-06 08:00] VITALS: BP 81/51
[2021-11-06] MEDS: SULFAMETHOXAZOLE/TRIMETHOPRIM 400/80MG TAB PO SCH (08:58)
[2021-11-06 12:00] VITALS: BP 97/75
[2021-11-06 12:02] VITALS: BP 97/75
[2021-11-06 16:00] VITALS: BP 107/53
== END 2021-11-06 16:55 | DRG 252 ==
LOC: ER 10:58 → MICUSO 17:42 → EDBEDREQ 17:48 → EDBEDREQTM 17:48 → 6EST 23:06
PROVIDERS: ADMIT Internal Medicine; ATTEND Internal Medicine
PROC: 0D20XUZ Change Feeding Device in Upper Intestinal Tract, External Approach (ICD-10-PCS; principal; 2021-10-31)
DX: K94.23 Gastrostomy malfunction (principal); E03.9 Hypothyroidism, unspecified; N39.0 Urinary tract infection, site not specified; K21.9 Gastro-esophageal reflux disease without esophagitis; R31.9 Hematuria, unspecified; Z20.822 Contact with and (suspected) exposure to COVID-19; Y83.3 Surgical operation with formation of external stoma as the cause of abnormal reaction of the patient, or of later complication, without mention of misadventure at the time of the procedure; S60.522A Blister (nonthermal) of left hand, initial encounter; X58.XXXA Exposure to other specified factors, initial encounter; Y93.89 Activity, other specified; Y92.89 Other specified places as the place of occurrence of the external cause; Z86.73 Personal history of transient ischemic attack (TIA), and cerebral infarction without residual deficits; Y99.8 Other external cause status; Z88.1 Allergy status to other antibiotic agents
CPT/HCPCS: 36415; 73130; 74018; 80048; 80053; 80061; 81003; 84443; 85025; 87426; 99285; C1893; J0696; J3490; J7030; J7040; J7042; J7060; J7120; J7121; Q9963; Q9967